=== PATIENT | male | born 1980 | race Caucasian/White ===

== ENCOUNTER 2017-09-08 11:39 | Emergency (ER) | payer OTHER ==
[2017-09-08 11:44] VITALS: RESP 16
[2017-09-08] MEDS ORDERED: KETOROLAC 30 MG/1 ML SDV IM ONE (11:57)
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
[2017-09-08 13:33] VITALS: BP 123/84; PULSE 60; TEMP 98.2; O2SAT 96
== END 2017-09-08 13:31 | disposition home or self-care (01) ==
DX: S22.41XA Multiple fractures of ribs, right side, initial encounter for closed fracture (principal); V18.2XXA Unspecified pedal cyclist injured in noncollision transport accident in nontraffic accident, initial encounter
CPT/HCPCS: J1885

== ENCOUNTER → 2018-11-02 | Outpatient (CLI) | payer OTHER | LOC: BMCIMAGING 09:09 | PROVIDERS: ATTEND Podiatrist Foot & Ankle Surgery | DX: S82.832D Other fracture of upper and lower end of left fibula, subsequent encounter for closed fracture with routine healing (principal) ==

== ENCOUNTER → 2018-11-30 | Outpatient (CLI) | payer OTHER | LOC: BMCIMAGING 09:03 | PROVIDERS: ATTEND Podiatrist Foot & Ankle Surgery | DX: S82.832D Other fracture of upper and lower end of left fibula, subsequent encounter for closed fracture with routine healing (principal) ==

== ENCOUNTER → 2018-12-21 | Outpatient (CLI) | payer OTHER | LOC: BMCIMAGING 09:00 | PROVIDERS: ATTEND Podiatrist Foot & Ankle Surgery | DX: S82.892D Other fracture of left lower leg, subsequent encounter for closed fracture with routine healing (principal) ==

== ENCOUNTER → 2019-01-18 | Outpatient (CLI) | payer OTHER | LOC: BMCIMAGING 08:18 | PROVIDERS: ATTEND Podiatrist Foot & Ankle Surgery | DX: Z09 Encounter for follow-up examination after completed treatment for conditions other than malignant neoplasm (principal); Z98.890 Other specified postprocedural states ==

== ENCOUNTER → 2019-02-02 | Outpatient (CLI) | payer OTHER | LOC: GIMAGING 12:38 → EDSTATUS 15:59 | PROVIDERS: ATTEND Internal Medicine | DX: M25.461 Effusion, right knee (principal); M25.761 Osteophyte, right knee; Z98.890 Other specified postprocedural states | CPT/HCPCS: 73560-PO ==